=== PATIENT | male | born 1965 | race Caucasian/White ===

== ENCOUNTER 2019-03-27 13:36 | Inpatient (IN) | payer MEDICARE ==
[~2019-03-27] VITALS: Ht 175.3 cm; Wt 139.5 kg
[2019-03-27] MEDS ORDERED: PROZAC20 MG PO (13:48)
[2019-03-27] MEDS ORDERED: CYCLOBENZAPRINE10 MG PO (13:48)
[2019-03-27] MEDS ORDERED: NEURONTIN 400400 MG PO (13:48)
[2019-03-27] MEDS ORDERED: TOPROL XL200 MG PO (13:48)
[2019-03-27] MEDS ORDERED: ZOCOR20 MG PO (13:49)
[2019-03-27] MEDS ORDERED: ROPINIROLE HCL1 MG PO (13:49)
[2019-03-27] MEDS ORDERED: OXYCONTIN10 MG PO (13:49)
[2019-03-27 14:18] LABS: APTT 36.1 SECONDS (22.8-39.4); CALC OSMOLALITY 276 mosm/kg (275-300); CALCIUM 8.7 mg/dL (8.5-10.1); CARBON DIOXIDE 24.3 mmol/L (21.0-32.0); CHLORIDE - SERUM 100 mmol/L (98-107); CREATININE - SERUM 1.3 mg/dL (0.6-1.3); GLUCOSE 183 mg/dL (74-106); INR 1.03 (0.85-1.17); POTASSIUM - SERUM 3.7 mmol/L (3.5-5.1); PROTIME 13.5 SECONDS (11.6-15.0); SODIUM 135 mmol/L (136-145); UREA NITROGEN 18 mg/dL (7-18); eGFR NON AFRICAN AMERICAN 61 mL/min (90-120)
[2019-03-27 14:39] LABS: HEMATOCRIT 42.6 % (42.0-54.0); MCH 28.6 pg (26.0-34.0); MCHC 32.9 g/dL (31.0-37.0); MCV 87.1 fL (80.0-100.0); MEAN PLATELET VOLUME 9.5 fL (7.4-10.4); PLATELET COUNT 294 10x3/uL (130-400); RBC 4.89 10x6/uL (4.20-6.10); RDW 14.5 % (11.5-14.5); WBC 23.2 10x3/uL (4.8-10.8)
[2019-03-27 14:48] LABS: ALBUMIN 3.1 g/dL (3.4-5.0); ALKALINE PHOSPHATASE 66 U/L (46-116); ALT (SGPT) 16 U/L (10-68); BILIRUBIN - TOTAL 0.45 mg/dL (0.2-1.3); CKMB 0.9 U/L (0.0-3.6); CREATINE KINASE 135 UL (21-232); MAGNESIUM - SERUM 1.4 mg/dL (1.8-2.4); PROTEIN - SERUM 7.7 g/dL (6.4-8.2); TROPONIN-I 0.033 ng/mL (0.000-0.060)
[2019-03-27 15:00] VITALS: BP 115/75
[2019-03-27 15:11] LABS: LYMPHOCYTES 6 % (15-50); MONOCYTES 12 % (2-11); NEUTROPHILS 82 % (40-80); PLATELET ESTIMATE NORMAL
[2019-03-27 16:00] VITALS: BP 109/76
[2019-03-27 16:12] LABS: COLOR ORANGE (YELLOW)
[2019-03-27 16:13] LABS: APPEARANCE HAZY (CLEAR); BILIRUBIN NEGATIVE (NEGATIVE); GLUCOSE NEGATIVE (NEGATIVE); KETONE NEGATIVE (NEGATIVE); NITRITE NEGATIVE (NEGATIVE); PROTEIN 3+ mg/dL (NEGATIVE); SPECIFIC GRAVITY 1.025 (1.005-1.020); UROBILINOGEN NORMAL (NORMAL)
[2019-03-27 16:16] LABS: BACTERIA MODERATE /hpf (NEGATIVE); EPITHELIAL CELLS NSEEN /hpf (0-5); RED CELLS - URINE 0-5 /hpf (0-5)
[2019-03-27] MEDS ORDERED: GLIPIZIDE10 MG PO (17:25)
[2019-03-27] MEDS ORDERED: TOPAMAX50 MG PO (17:26)
--- NOTE | 2019-03-27 18:29 | MORECARE ---
CASE MANAGEMENT DISCHARGE SUMMARY PATIENT: MARCELO HANNAH UNIT: [id number] ADM DATE: 03/27/19 AGE: 53 : 61 SEX: M ROOM/BED: D.2223 AUTHOR: HOMERO,DOC PHYSICIAN: REFERRING PHYSICIAN: ONOFRE BARBOSA MD DATE OF SERVICE: 03/27/19 Discharge Plan Patient Name: MARCELO HANNAH Facility: [facility]:[place] : 1965 Planned Disposition: Anticipated Discharge Date: Discharge Date: Expected LOS: Initial Reviewer: [email or web address] Initial Review Date: 03/27/2019 Generated: 03/27/19 7:29 pm DCP- Discharge Planning Updated by [email or web address]: Rosita Cohen on 03/27/19 4:[address] CM met with patient to discuss initial discharge planning. Patient is in agreement to proceed with the assessment with his , Tia, present. Verified patient's address and telephone number. Patient is alert/oriented. Stairs/steps: 0. PCP: Dr. Zeke Vasquez. Pharmacy: [email or web address]. Patient states he has been able to obtain all of his prescribed medications. Patient lives with spouse, Tia. HHS: No. DME: [email or web address]. Patient gives permission to speak with family members. Emergency contact: Tia Hannah () [phone]. 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 CM discussed the availability of HH, Rehab, DME services. Patient denies the need for additional services at this time and feels safe returning to previous environment. Patient denies being hospitalized within the past 30 days. 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 Transportation at time of discharge: Tia Hannah (). CM will assist with DC needs/plans PRN. DCPIA - Discharge Planning Initial Assessment Updated by [email or web address]: Rosita Cohen on 03/27/19 6:27 pm * Is the patient Alert and Oriented? Yes * How many steps to enter\exit or inside your home? * PCP Dr. Meche Vasquez, * Pharmacy [facility] * Preadmission Environment Home with Family * ADLs Independent * Equipment Cane Rolling Walker * Other Equipment Glucometer * List name and contact numbers for known caregivers / representatives who currently or will assist patient after discharge: Tia Hannah () [phone] * Verbal permission to speak to the caregivers and representatives has been obtained from the patient. Yes * Community resources currently utilized None * Please name any agencies selected above. NA * Additional services required to return to the preadmission environment? No * Can the patient safely return to the preadmission environment? Yes * Has this patient been hospitalized within the prior 30 days at any hospital? No Patient Name: MARCELO HANNAH Page [id number] at 1829 All edits/amendments must be made on the electronic document DICTATION DATE: 03/27/191828 RELAY TELEGRAPHER: CARA 03/27/191828 RPT#: [id number] DC DATE: STATUS: ADM IN [facility] [address] [place] [address] END OF REPORT
--- NOTE | 2019-03-27 19:35 | NUR ---
PT ARRIVED TO THE FLOOR. ALERT AND ORIENTED. NO SIGNS OF DISTRESS. BREATHING EVEN AND UNLABORED. IV SITE RT HAND 20G. DRESSING CLEAN DRY AND INTACT. NO SIGNS OF INFECTION OR INFULTRATION. SKIN CLEAN DRY AND INTACT. BOWEL SOUNDS ACTIVE. LUNG SOUNDS CLEAR. NO LOWER LEG SWELLING PRESENT. WILL CONTINUE PLAN OF CARE. CALL LIGHT IN REACH. BED LOWERED AND LOCKED. BED RAILS UPX1.
[2019-03-27 20:00] VITALS: BP 130/73
--- NOTE | 2019-03-27 21:00 | NUR ---
FSBS 66 NO INSULIN GIVEN AT THIS TIME PER SS.
[2019-03-28] VITALS (7 sets, daily range): BP systolic 125–160; BP diastolic 73–91; Ht 175.3 cm; Wt 139.5 kg
--- NOTE | 2019-03-28 01:00 | NUR ---
WALKED INTO PT ROOM TO CHECK ON HIM. PT STATED HE HAD FALLIN DOWN ON HIS KNEE HIT HIS HEAD ON THE BATHROOM DOOR. PT STATED HE GOT A FOOT CRAMP AND WENT DOWN TO HIS KNEE. VITALS STABLE. NO SIGNS OF ANYTHING BROKEN OR OUT OF PLACE. SMALL ABRASION IN THE MIDDLE OF HIS FORHEAD. WILL NOTIFY
--- NOTE | 2019-03-28 01:53 | NUR ---
[facility] NEURO CHECKS PER DR ORDER. PT SIGNED REFUSAL FOR BED ALARM. AND REFUSAL OF NON SKID SOCKS. PT STATES HE IS FINE JUST HAD A FOOT CRAMP. WILL CONTINUE PLAN OF CARE. CALL LIGHT IN REACH. BED LOWERED AND LOCKED. BED RAILS UPX1.
[2019-03-28 05:31] LABS: ANION GAP 16.1 mmol/L (8-16); CALCIUM 8.7 mg/dL (8.5-10.1); CARBON DIOXIDE 24.4 mmol/L (21.0-32.0); CREATININE - SERUM 1.2 mg/dL (0.6-1.3); POTASSIUM - SERUM 3.5 mmol/L (3.5-5.1)
[2019-03-28 05:37] LABS: BASOPHILS 0.1 % (0-2); EOSINOPHILS 0.2 % (0-7); HEMATOCRIT 42.8 % (42.0-54.0); HEMOGLOBIN 13.7 g/dL (13.5-17.5); IMMATURE GRANULOCYTES 0.3 % (0-5); LYMPHOCYTES 5.5 % (15-50); MCH 28.3 pg (26.0-34.0); MCV 88.4 fL (80.0-100.0); MEAN PLATELET VOLUME 10.1 fL (7.4-10.4); MONOCYTES 9.9 % (2-11); PLATELET COUNT 294 10x3/uL (130-400); RBC 4.84 10x6/uL (4.20-6.10); RDW 14.5 % (11.5-14.5); WBC 18.2 10x3/uL (4.8-10.8)
[2019-03-28] MEDS ORDERED: PROTONIX20 MG PO (05:41)
[2019-03-28] MEDS ORDERED: ANDROGEL5 GM (05:41)
[2019-03-28] MEDS ORDERED: PIOGLITAZONE15 MG PO (13:09)
[2019-03-29] VITALS: BP 145/93
[2019-03-29 04:00] VITALS: BP 138/86
--- NOTE | 2019-03-29 04:09 | NUR ---
I have reviewed this patient and I concur with the Shift Assessment completed by the Licensed Practical Nurse today this shift.
--- NOTE | 2019-03-29 05:49 | NUR ---
PT RESTING IN BED. EYES CLOSED. NO SIGNS OF DISTRESS. BREATHING EVEN AND UNLABORED. IV SITE RT HAND DRESSING CLEAN DRY AND INTACT. NO SIGNS OF INFECTION OR INFULTRATION. BOWEL SOUNDS ACTIVE. LUNG SOUNDS CLEAR. SKIN CLEAN DRY AND INTACT. WILL CONTINUE PLAN OF CARE. CALL LIGHT IN REACH. BED LOWERED AND LOCKED. BED RAILS UPX2.
[2019-03-29 06:09] LABS: BASOPHILS 0.2 % (0-2); HEMATOCRIT 40.2 % (42.0-54.0); HEMOGLOBIN 12.9 g/dL (13.5-17.5); IMMATURE GRANULOCYTES 0.5 % (0-5); LYMPHOCYTES 10.6 % (15-50); MCHC 32.1 g/dL (31.0-37.0); MCV 87.4 fL (80.0-100.0); MEAN PLATELET VOLUME 9.9 fL (7.4-10.4); NEUTROPHILS 69.7 % (40-80); PLATELET COUNT 279 10x3/uL (130-400); RDW 14.9 % (11.5-14.5)
[2019-03-29 06:21] LABS: WBC 9.4 10x3/uL (4.8-10.8)
[2019-03-29 06:37] LABS: CALC OSMOLALITY 273 mosm/kg (275-300); CALCIUM 8.8 mg/dL (8.5-10.1); CARBON DIOXIDE 22.7 mmol/L (21.0-32.0); CHLORIDE - SERUM 102 mmol/L (98-107); CREATININE - SERUM 0.9 mg/dL (0.6-1.3); GLUCOSE 124 mg/dL (74-106); POTASSIUM - SERUM 3.8 mmol/L (3.5-5.1); SODIUM 136 mmol/L (136-145); UREA NITROGEN 15 mg/dL (7-18); eGFR NON AFRICAN AMERICAN > 90 mL/min (90-120)
[2019-03-29 09:33] VITALS: BP 131/86
--- NOTE | 2019-03-29 09:34 | NUR ---
RESTING IN ROOM, NO DISTRESS NOTED, UP IN CHAIR, CONT TO MOITOR SUGARS
[2019-03-29] MEDS ORDERED: MUCINEX600 MG PO (10:36)
[2019-03-29] MEDS ORDERED: ALBUTEROL SULF8.5 GM INH (10:37)
[2019-03-29] MEDS ORDERED: LEVAQUIN750 MG PO (10:37)
--- NOTE | 2019-03-29 14:12 | NUR ---
1150 D/C IV, TIP INTACT, REVIEWED D/C ORDERS WITH PT, VOICED CONCERNS
--- NOTE | 2019-03-29 18:17 | MORECARE ---
CASE MANAGEMENT DISCHARGE SUMMARY PATIENT: MARCELO HANNAH UNIT: [id number] ADM DATE: 03/27/19 AGE: 53 : 61 SEX: M ROOM/BED: D.2223 AUTHOR: HOMERO,DOC PHYSICIAN: REFERRING PHYSICIAN: ONOFRE BARBOSA MD DATE OF SERVICE: 03/29/19 Discharge Plan Patient Name: MARCELO HANNAH Facility: [facility]:[place] : 1965 Planned Disposition: Anticipated Discharge Date: Discharge Date: 03/29/2019 Expected LOS: Initial Reviewer: [email or web address] Initial Review Date: 03/27/2019 Generated: 03/29/19 7:17 pm DCP- Discharge Planning Updated by [email or web address]: Rosita Cohen on 03/27/19 4:[address] CM met with patient to discuss initial discharge planning. Patient is in agreement to proceed with the assessment with his , Tia, present. Verified patient's address and telephone number. Patient is alert/oriented. Stairs/steps: 0. PCP: Dr. Zeke Vasquez. Pharmacy: [facility]. Patient states he has been able to obtain all of his prescribed medications. Patient lives with spouse, Tia. HHS: No. DME: [facility]. Patient gives permission to speak with family members. Emergency contact: Tia Hannah () [phone]. 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 CM discussed the availability of HH, Rehab, DME services. Patient denies the need for additional services at this time and feels safe returning to previous environment. Patient denies being hospitalized within the past 30 days. Patient denies the use of community resources CARD LACER. Transportation at time of discharge: Tia Hannah (). CM will assist with DC needs/plans PRN. DCPIA - Discharge Planning Initial Assessment Updated by [email or web address]: Rosita Cohen on 03/27/19 6:27 pm * Is the patient Alert and Oriented? Yes * How many steps to enter\exit or inside your home? * PCP Dr. Meche Vasquez, * Pharmacy [facility] * Preadmission Environment Home with Family * ADLs Independent * Equipment Cane Rolling Walker * Other Equipment Glucometer * List name and contact numbers for known caregivers / representatives who currently or will assist patient after discharge: Tia Hannah () [phone] * Verbal permission to speak to the caregivers and representatives has been obtained from the patient. Yes * Community resources currently utilized None * Please name any agencies selected above. NA * Additional services required to return to the preadmission environment? No * Can the patient safely return to the preadmission environment? Yes * Has this patient been hospitalized within the prior 30 days at any hospital? No Last DP export: 03/27/19 5:29 p Patient Name: MARCELO HANNAH Page [id number] at 1817 All edits/amendments must be made on the electronic document DICTATION DATE: 03/29/191816 IN CLASSROOM TUTOR: CARA 03/29/191816 RPT#: [id number] DC DATE:03/29/19 STATUS: DIS IN [facility] [address] [place] [address] END OF REPORT
[2019-04-01 22:06] LABS: CHLAMYDIA TRACHOMATIS, NAA Negative (Negative)
== END 2019-03-29 12:00 | disposition home or self-care (01) | DRG 727 ==
LOC: D.ER 13:36 → D.MS 17:13
PROVIDERS: Emergency Medicine; ADMIT Internal Medicine Nephrology; ATTEND Internal Medicine Nephrology
DX: N41.0 Acute prostatitis (principal); J18.9 Pneumonia, unspecified organism; N39.0 Urinary tract infection, site not specified; I10 Essential (primary) hypertension; E78.5 Hyperlipidemia, unspecified; E11.40 Type 2 diabetes mellitus with diabetic neuropathy, unspecified; K21.9 Gastro-esophageal reflux disease without esophagitis; B96.1 Klebsiella pneumoniae [K. pneumoniae] as the cause of diseases classified elsewhere